=== PATIENT | female | born 1965 ===

== ENCOUNTER 2023-04-20 05:42 | Day surgery (SDC) | payer OTHER ==
[~2023-04-20 05:42] MED LIST: ATIVAN0.5 MG PO; CATAFLAM50 MG PO; CYMBALTA60 MG PO; LIPITOR20 MG PO; METFORMIN HCL500 M3 PO; SYNTHROID75 MCG; SYNTHROID75 MCG PO; SYNTHROID88 MCG PO; [UNRECOGNIZED DRUG - OTHER]
== END 2023-04-20 10:10 | disposition home or self-care (01) ==
LOC: U 05:42 → CIR.AMB 05:42
PROVIDERS: ATTEND Surgery Surgery of the Hand
DX: M65.311 Trigger thumb, right thumb (principal); M67.843 Other specified disorders of tendon, right hand; E78.5 Hyperlipidemia, unspecified; Z20.822 Contact with and (suspected) exposure to COVID-19